=== PATIENT | male | born 1990 | race Caucasian/White ===

== ENCOUNTER 2016-09-26 14:46 | Emergency (ER) | payer MEDICAID ==
--- NOTE | 2016-09-26 15:53 | ER NURSING DOCUMENTATION ---
Nurse's Notes [facility] Name:Scott Packer Age:25 yrs Sex:Male :1990 Arrival Date:09/26/2016 Time:14:46 Bed2 Private MD: Diagnosis:Dental Abscess Presentation: 09/26 14:53 Presenting complaint: Patient states: Pt states pain on both sides of jaw from ma toothaches States cant get into dentist until October 09. Transition of care: Home. 14:53 Acuity: MARIELA 5 il 14:53 Method Of Arrival: Private Vehicle il Triage Assessment: 14:50 General: Appears in no apparent distress, Behavior is cooperative. Pain: Complains of ma pain in upper right second molar and lower left first molar. EENT: Reports pain. Historical: - Allergies: No known drug Allergies; - Home Meds: 1. Ibuprofen Oral - PSHx: Appy; - Tetanus: unknown. - Ebola Screening: : No symptoms or risks identified at this time. . - Immunization history: Flu Vaccine None. - Social history: Smoking status: unknown if patient ever smoked tobacco. Screenin:51 Infectious Disease Risk None. Abuse screen: Denies threats or abuse. Nutritional ma screening: No deficits noted. Assessment: 15:52 Reassessment: Patient appears in no apparent distress at this time. il Vital Signs: 14:50 BP 144 / 88; Pulse 96; Resp 18 S; Temp 97.3; Pulse Ox 95% on R/A; Weight 65.77 kg; ma Height 5 ft. 8 in. (172.72 cm); 14:50 Body Mass Index 22.05 (65.77 kg, 172.72 cm) il ED Course: 14:47 Patient arrived in ED. ds 14:53 Lizzeth Al, PERFECTO is Primary Nurse. ma 14:55 Dionisio Higgins MD is Attending Physician. az 14:55 Triage completed. il 15:18 [facility] is Referral Physician. sc 15:51 Valuables Remains with patient Patient has correct armband on for positive ma identification. Bed in low position. Call light in reach. Administered Medications: No medications were administered Outcome: 15:18 Discharge ordered by MD. sc 15:52 Discharged to home il 15:52 Condition: stable 15:52 Discharge instructions given to patient, Instructed on discharge instructions, medication usage, Demonstrated understanding of instructions, medications, Prescriptions given X 2. 15:52 Patient left the ED. nayely 09/27 14:48 Discharge F/U Call: Spoke with: patient. Are you having any pain? no. Have you made a lp f/u appointment? yes Signatures: Lizzeth Al, RN Diana Gardiner ma, RN RN lp Srot, Ml, Reg Reg Dionisio Norton MD MD az
--- NOTE | 2016-09-26 15:53 | ER PHYSICIAN DOCUMENTATION ---
Physician Documentation [facility] Name:Scott Packer Age:25 yrs Sex:Male :1990 Arrival Date:09/26/2016 Time:14:46 Bed2 Private MD: Dionisio Garnica Disposition: 09/26/16 15:18 Discharged to Home/Self Care. Impression: Dental Abscess. - Condition is Good. - Discharge Instructions: DENTAL ABSCESS. - Prescriptions for Clindamycin HCl 300 mg Oral Capsule - take 1 capsule by ORAL route every 6 hours for 10 days; 40 capsule. Hydrocodone- Acetaminophen 5-325 mg Oral Tablet - take 1 tablet by ORAL route every 6 hours As needed; 20 tablet. - Medical Reconciliation form form. - Follow up: [facility]; When: 1 week; Reason: Recheck today's complaints. - Problem is new. - Symptoms have improved. HPI: 09/26 15:30 This 25 yrs old Male presents to ER via Private Vehicle with complaints of sc Toothache. 15:30 The patient presents with pain, swelling. The problem is located in the left buccal sc mucosa. Onset: The symptom(s)/episode began/occurred 1 week(s) ago. Duration: The symptoms are continuous, and are steadily getting worse. Modifying factors: the symptoms are aggravated by cold fluids. Associated signs and symptoms: The patient has no apparent associated signs or symptoms. Historical: - Allergies: No known drug Allergies; - Home Meds: 1. Ibuprofen Oral - PSHx: Appy; - Tetanus: unknown. - Ebola Screening: : No symptoms or risks identified at this time. . - Immunization history: Flu Vaccine None. - Social history: Smoking status: unknown if patient ever smoked tobacco. ROS: 15:31 Constitutional: Negative for fever, chills, and weight loss. sc Eyes: Negative for injury, pain, redness, and discharge. Cardiovascular: Negative for chest pain, palpitations, and edema. Respiratory: Negative for shortness of breath, cough, wheezing, and pleuritic chest pain. : Negative for injury, bleeding, discharge, and swelling. Skin: Negative for injury, rash, and discoloration. 15:31 Neuro: Negative for headache, weakness, numbness, tingling, and seizure. wi 15:31 ENT: Positive for dental pain. Exam: Constitutional: This is a well developed, well nourished patient who is awake, alert, and in no acute distress. Head/Face: Normocephalic, atraumatic. Neck: Trachea midline, no thyromegaly or masses palpated, and no cervical lymphadenopathy. Supple, full range of motion without nuchal rigidity, or vertebral point tenderness. No meningismus. 15:31 Skin: Warm, dry with normal turgor. Normal color with no rashes, no lesions, and no sc evidence of cellulitis. 15:31 ENT: Mouth: Oral mucosa: normal, moist, Dental exam: dental caries, that is moderate, pain. Vital Signs: 14:50 BP 144 / 88; Pulse 96; Resp 18 S; Temp 97.3; Pulse Ox 95% on R/A; Weight 65.77 kg; ma Height 5 ft. 8 in. (172.72 cm); 14:50 Body Mass Index 22.05 (65.77 kg, 172.72 cm) ma MDM: 14:55 Patient medically screened. wi 15:32 Differential diagnosis: dental caries, gingivitis, pericoronitis. Data reviewed: vital sc signs, nurses notes, and as a result, I will discharge patient, administer antibiotics. Counseling: I had a detailed discussion with the patient and/or guardian regarding: the historical points, exam findings, and any diagnostic results supporting the discharge/admit diagnosis, the need for outpatient follow up, for a referral to a specialist. Dispensed Medications: No medications were administered Signatures: Lizzeth Al RN RN ma Chew, Scott, MD MD wi
== END 2016-09-26 15:53 | disposition home or self-care (01) ==
LOC: ER 14:46
DX: K04.7 Periapical abscess without sinus (principal); K08.89 Other specified disorders of teeth and supporting structures; K02.9 Dental caries, unspecified
CPT/HCPCS: 99282